=== PATIENT | male | born 1955 | race Caucasian/White ===

== ENCOUNTER 2021-11-27 21:15 | Emergency (ER) | payer MEDICARE, OTHER ==
[~2021-11-27] VITALS: Ht 177.8 cm; Wt 117.9 kg
[2021-11-27 22:01] VITALS: BP 147/103
[2021-11-27] MEDS ORDERED: CEPH500C PO (22:01)
--- NOTE | 2021-11-27 22:01 | PHYS DOC ---
Adult General HPI HPI Patient is a 66-year-old male with [id number] diabetes and bilateral lower extremity venous insufficiency who presents with some concern for reddening of his left lower extremity that started over the last couple of days. Denies recent traumas, travels, illnesses, fevers, chest pain, shortness of breath, abdominal pain, nausea, vomiting, diarrhea. States he is making urine and stool normally for him with no blood in it. States they are not any bigger than they usually are but he was worried about some redness as he did not actually scratch his leg while out in the lawn. Couple days ago. Review of Systems Review of Systems Review of systems otherwise unremarkable except noted in HPI Physical Exam Physical Exam Constitutional: Well developed, well nourished, no acute distress, non-toxic appearance. [] HENT: Normocephalic, atraumatic, oropharynx moist, no oral exudates, nose normal. [] Eyes: conjunctiva normal, no discharge. [] Neck: Normal range of motion, no tenderness, supple, no stridor. [] Cardiovascular:Heart rate regular rhythm, no murmur [] Lungs & Thorax: Bilateral breath sounds clear to auscultation [] Abdomen: Bowel sounds normal, soft, no tenderness, no masses, no pulsatile masses. [] Skin: Warm, dry, no erythema, no rash. [] Back: No tenderness, no CVA tenderness. [] Extremities: No tenderness, no cyanosis, no clubbing, ROM intact, no edema. [] Neurologic: Alert and oriented X 3, normal motor function, normal sensory function, no focal deficits noted. [] Psychologic: Affect normal, judgement normal, mood normal. [] EKG EKG [] Radiology/Procedures Radiology/Procedures [] Heart Score C/O Chest Pain: No Risk Factors: Risk Factors: DM, Current or recent (<one month) smoker, HTN, HLP, family history of CAD, obesity. Risk Scores: Risk Factors: DM, Current or recent (<one month) smoker, HTN, HLP, family history of CAD, obesity. Course & Med Decision Making Course & Med Decision Making Patient is a 66-year-old male who presents with some reddening on left lower extremity Vital signs nonconcerning. Physical exam noted above. Started on antibiotics for superficial cellulitis on top of venous stasis Advised on symptom control at home. Advised on diet and sodium. Advised on compression stockings and leg elevation Advised to follow-up in the morning with primary care physician update on ED visit and set up a follow-up as soon as possible Gave return precautions to the ED. Patient grateful, verbalized understanding agree with plan of discharge [] Dragon Disclaimer Dragon Disclaimer This electronic medical record was generated, in whole or in part, using a voice recognition dictation system. Departure Departure: Impression: Primary Impression: Bilateral lower extremity edema Additional Impressions: Venous stasis Cellulitis Disposition: HOME / SELF CARE / HOMELESS Condition: STABLE Referrals: PCP,UNKNOWN (PCP) ANIKET RAUSCH MD Patient Instructions: Cellulitis, Venous Stasis and Chronic Venous Insufficiency Additional Instructions: Thank you for coming into the emergency department tonight and allowing us to take care of you. Please read the attached information carefully go over things we discussed. Please take your antibiotics as prescribed and until gone. Please use compression stockings as we discussed and keep your legs elevated is much as possible. Please watch her sodium and fluid intake as we discussed. Please follow-up in the morning with your primary care physician and set up a follow-up appointment as soon as you can for reevaluation. Please come back with new or concerning symptoms as discussed. Scripts Cephalexin (KEFLEX) 500 Mg Capsule 1 CAP PO TID for cellulitis for 5 Days, #15 CAP Prov: CHRISTOPHER AVENDAÑO MD 11/27/21 Problem Qualifiers CHRISTOPHER AVENDAÑO MD November 27, 2021 22:01
[2021-11-27] MEDS ORDERED: CEPHALEXIN 250 MG CAPSULE ONE ×2 (22:05→22:06)
[2021-11-27] MEDS: CEPHALEXIN 250 MG CAPSULE PO ONE (22:07)
== END 2021-11-27 22:10 | disposition home or self-care (01) ==
LOC: ER 21:15
DX: I87.8 Other specified disorders of veins (principal); L03.116 Cellulitis of left lower limb; R60.0 Localized edema
CPT/HCPCS: 99283